=== PATIENT | male | born 1995 | race Caucasian/White ===

== ENCOUNTER 2018-06-12 22:03 | Emergency (ER) | payer OTHER ==
[~2018-06-12] VITALS: Ht 182.9 cm; Wt 78.6 kg
[2018-06-12 22:04] VITALS: BP 120/70
[2018-06-12] MEDS ORDERED: TETRACAINE 0.5% OPHTH SOLN 4ML OD ONE (22:30)
[2018-06-12] MEDS ORDERED: FLUORESCEIN OPHTH 1 MG STRIP OD ONE (22:30)
[2018-06-12] MEDS ORDERED: ERYTOIN8 OP (22:45)
[2018-06-12] MEDS ORDERED: ERYTHROMYCIN OPHTH OINT OS ONE (22:45)
== END 2018-06-12 22:57 | disposition home or self-care (01) ==
LOC: M ED 22:03
DX: S05.02XA Injury of conjunctiva and corneal abrasion without foreign body, left eye, initial encounter (principal); X58.XXXA Exposure to other specified factors, initial encounter; Y92.89 Other specified places as the place of occurrence of the external cause